=== PATIENT | female | born 1965 | race Hispanic/Latino ===

== ENCOUNTER → 2024-09-08 | Outpatient (REF) | payer OTHER ==
[~2024-09-08] MED LIST: CRESTOR10 MG PO; DEXAMETHASONE4 MG PO; FOLIC ACID0.4 MG PO; IBUPROFEN600 MG PO; LOSARTAN-HCTZ1 EAC2 PO; METHOTREXATE2.5 MG PO; RYBELSUS3 MG PO; VIT D3 PO; XIGDUO XR 10 M1 EAC1 PO
== END ==
LOC: US 09:24
PROVIDERS: ATTEND Nurse Practitioner
DX: R10.10 Upper abdominal pain, unspecified (principal)
CPT/HCPCS: 76700

== ENCOUNTER → 2024-10-07 | Day surgery (SDC) | payer OTHER ==
[~2024-10-07] MED LIST changes: +ALLEGRA-D 24 H1 EACH PO; +AMOX TR-K CLV1 EAC2 PO; +ASPIRIN EC81 MG PO; +DULCOLAX10 MG PR; +EPHEDRINE SULFATE INJ 50 MG/ML VIAL ONE; +ESTROVEN MAX400 MCG PO; +FAMOTIDINE20 MG PO; +FENTANYL CITRATE/PF 100MCG/2 ML INJ ONE; +GLUCAGON FOR INJ 1 MG VIAL ONE; +GLYCOPYRROLATE INJ 0.2 MG/ML VIAL ONE; +HYOSCYAMINE SULFATE 0.5 MG/ML INJ ONE; +KETOROLAC TROME10 MG PO; +LIDOCAINE HCL 2% LOCAL INJ 5 ML SDV VIAL INJ ONE; +LORATADINE10 MG PO; +ONDANSETRON ODT4 MG PO; +OZEMPIC1 MG/0.71 SC; +PANTOPRAZOLE SO40 MG PO; +PROPOFOL IV EMULSION 50 ML IV ONE; +STOOL SOFTENER1 EACH PO
[2024-10-07] MEDS: LACTATED RINGER'S 1,000 ML ONE (11:23)
[2024-10-07 13:41] VITALS: TEMP 98.2
[2024-10-07 14:04] VITALS: BP 111/62; PULSE 72; RESP 18; O2SAT 98
== END | disposition home or self-care (01) ==
LOC: OR 10:34
PROVIDERS: ATTEND Internal Medicine Gastroenterology
DX: K29.50 Unspecified chronic gastritis without bleeding (principal); D12.2 Benign neoplasm of ascending colon; D12.7 Benign neoplasm of rectosigmoid junction; K31.89 Other diseases of stomach and duodenum; K20.90 Esophagitis, unspecified without bleeding; K21.9 Gastro-esophageal reflux disease without esophagitis; K59.00 Constipation, unspecified; K64.8 Other hemorrhoids; I10 Essential (primary) hypertension; E11.9 Type 2 diabetes mellitus without complications; E78.5 Hyperlipidemia, unspecified; Z01.810 Encounter for preprocedural cardiovascular examination; Z79.84 Long term (current) use of oral hypoglycemic drugs; Z79.85 Long-term (current) use of injectable non-insulin antidiabetic drugs; Z79.899 Other long term (current) drug therapy
CPT/HCPCS: 36415; 43239; 45385; 82948; 93005; J1610; J1980; J2003; J2470; J2704; J3010; J7121; 45378

== ENCOUNTER 2024-10-20 00:29 | Emergency (ER) | payer OTHER ==
[~2024-10-20] VITALS: Ht 157.5 cm; Wt 71.7 kg
[~2024-10-20 00:29] MED LIST changes: -ALLEGRA-D 24 H1 EACH PO; -AMOX TR-K CLV1 EAC2 PO; -ASPIRIN EC81 MG PO; -DULCOLAX10 MG PR; -EPHEDRINE SULFATE INJ 50 MG/ML VIAL ONE; -FENTANYL CITRATE/PF 100MCG/2 ML INJ ONE; -GLUCAGON FOR INJ 1 MG VIAL ONE; -GLYCOPYRROLATE INJ 0.2 MG/ML VIAL ONE; -HYOSCYAMINE SULFATE 0.5 MG/ML INJ ONE; -KETOROLAC TROME10 MG PO; -LIDOCAINE HCL 2% LOCAL INJ 5 ML SDV VIAL INJ ONE; -ONDANSETRON ODT4 MG PO; -PANTOPRAZOLE SO40 MG PO; -PROPOFOL IV EMULSION 50 ML IV ONE; -STOOL SOFTENER1 EACH PO
[2024-10-20] MEDS: SODIUM CHLORIDE 0.9% 1000ML 1,000 ML IV STA ×2 (01:05)
[2024-10-20] MEDS: Morphine 4mg INJECTION 4 MG/ML INJ IV STA (01:05)
[2024-10-20] MEDS: ACETAMINOPHEN 325 MG TAB PO STA (01:06)
[2024-10-20] MEDS: ONDANSETRON HCL INJ 2MG/ML 2ML 2 MG/ML VIAL IV STA (01:06)
[2024-10-20 01:16] LABS: BASOPHILS % 0.3 % (0.0-1.0); EOSINOPHILS # (AUTO) 0.1 (0.0-0.4); EOSINOPHILS % 0.5 % (0.0-6.0); HEMATOCRIT 39.4 % (34.2-44.1); HEMOGLOBIN 13.6 g/dL (12.0-16.0); LYMPHOCYTES % 10.5 % (18.0-39.1); MEAN CORPUSCULAR HEMOGLOBIN 31.2 pg (28-32); MEAN CORPUSCULAR HGB CONC 34.5 g/dL (31-35); MEAN CORPUSCULAR VOLUME 90.4 fL (81-99); MONOCYTES # (AUTO) 0.5 (0.2-0.8); MONOCYTES % 4.7 % (4.4-11.3); NEUTROPHILS # (AUTO) 7.9 (2.1-6.9); NEUTROPHILS % 83.6 % (38.7-80.0); PLATELET COUNT 182 x10e3/uL (140-360); RED BLOOD COUNT 4.36 x10e6/uL (3.6-5.1); WHITE BLOOD COUNT 9.48 x10e3/uL (4.8-10.8)
[2024-10-20 01:30] LABS: ALANINE AMINOTRANSFERASE 26 IU/L (0-55); ALBUMIN/GLOBULIN RATIO 1.2 (0.8-2.0); ALKALINE PHOSPHATASE 65 IU/L (40-150); ANION GAP 15.4 mmol/L (8-16); BILIRUBIN,TOTAL 1.1 mg/dL (0.2-1.2); BLOOD UREA NITROGEN 8 mg/dL (7-26); BUN/CREATININE RATIO 11 (6-25); CALCIUM 9.6 mg/dL (8.4-10.2); CARBON DIOXIDE 22 mmol/L (22-29); CHLORIDE 100 mmol/L (98-107); CREATINE KINASE 37 IU/L (29-168); CREATININE, SERUM 0.75 mg/dL (0.57-1.11); EST GLOMERULAR FILTRATION RATE 93 ML/MIN (>=60); GLUCOSE 279 mg/dL (74-118); LIPASE 52 U/L (8-78); POTASSIUM 3.4 mmol/L (3.5-5.1); SODIUM 134 mmol/L (136-145); TOTAL PROTEIN 7.4 g/dL (6.5-8.1)
[2024-10-20 01:31] LABS: CLARITY,URINE CLOUDY (CLEAR); COLOR,URINE YELLOW (YELLOW)
[2024-10-20 01:32] LABS: BILIRUBIN,URINE NEGATIVE (NEGATIVE); GLUCOSE, URINE 500 (NEGATIVE); KETONES,URINE NEGATIVE (NEGATIVE); LEUKOCYTE ESTERASE ,URINE TRACE (NEGATIVE); NITRITE,URINE POSITIVE (NEGATIVE); PH,URINE 5.5 (5 - 7); PROTEIN,URINE DIPSTICK 1+ (NEGATIVE); URINE UROBILINOGEN 0.2 mg/dL (0.2 - 1)
[2024-10-20 01:35] LABS: BACTERIA,URINE MANY /HPF; EPITHELIAL CELLS,URINE MODERATE /LPF; WBC,URINE (MAN) >50 /HPF (0-5)
[2024-10-20 02:02] LABS: TROPONIN I < 0.001 ng/mL (0-0.300)
[2024-10-20 02:15] LABS: CORONAVIRUS COVID-19 AG NEGATIVE (NEGATIVE); INFLUENZA A AG NEGATIVE (NEGATIVE); INFLUENZA B AG NEGATIVE (NEGATIVE)
[2024-10-20] MEDS ORDERED: KETOROLAC TROMETHAMINE 30 MG/ML VIAL ONE (03:16)
[2024-10-20] MEDS: KETOROLAC TROMETHAMINE 30 MG/ML VIAL IV STA (03:24)
[2024-10-20] MEDS ORDERED: AMOX TR-K CLV1 EAC2 PO (03:39)
[2024-10-20] MEDS ORDERED: ONDANSETRON ODT4 MG PO (03:39)
[2024-10-20] MEDS ORDERED: KETOROLAC TROME10 MG PO (03:39)
[2024-10-20 03:49] VITALS: PULSE 85; RESP 19; TEMP 98.4; O2SAT 95
== END 2024-10-20 03:50 | disposition home or self-care (01) ==
LOC: ER 00:33
DX: R50.9 Fever, unspecified (principal); N12 Tubulo-interstitial nephritis, not specified as acute or chronic; R30.0 Dysuria; R10.13 Epigastric pain; Z11.52 Encounter for screening for COVID-19; R94.31 Abnormal electrocardiogram [ECG] [EKG]
CPT/HCPCS: 36415; 74177; 80053; 81001; 82550; 83605; 83690; 84484; 85025; 87040; 87071; 87086; 87186; 87205; 87428; 93005; 99284; J1885; J2270; J2405; J2543; J7030

== ENCOUNTER 2025-01-17 15:00 | Outpatient (RCR) | payer OTHER ==
[~2025-01-17 15:00] MED LIST changes: +ALLEGRA-D 24 H1 EACH PO; +AMOX TR-K CLV1 EAC2 PO; +ASPIRIN EC81 MG PO; +DULCOLAX10 MG PR; +KETOROLAC TROME10 MG PO; +ONDANSETRON ODT4 MG PO; +PANTOPRAZOLE SO40 MG PO; +STOOL SOFTENER1 EACH PO
== END 2025-01-20 ==
LOC: OT 15:00
PROVIDERS: ATTEND Physician Assistant
DX: Z47.89 Encounter for other orthopedic aftercare (principal); S46.091D Other injury of muscle(s) and tendon(s) of the rotator cuff of right shoulder, subsequent encounter

== ENCOUNTER 2025-01-21 22:13 | Inpatient (IN) | payer OTHER ==
[~2025-01-21] VITALS: Ht 157.5 cm; Wt 73.0 kg
[2025-01-21] MEDS ORDERED: PIPERACILLIN/TAZOBACTAM 3.375 GM VIAL ONE (22:32)
[2025-01-21] MEDS: SODIUM CHLORIDE 0.9% 1000ML 1,000 ML IV STA (22:37)
[2025-01-21] MEDS: ACETAMINOPHEN 325 MG TAB PO STA (22:39)
[2025-01-21] MEDS: ONDANSETRON HCL INJ 2MG/ML 2ML 2 MG/ML VIAL IV STA (22:39)
[2025-01-21] MEDS: KETOROLAC TROMETHAMINE 30 MG/ML VIAL IV STA (22:40)
[2025-01-21] MEDS: ONDANSETRON HCL 4 MG ORAL DISINTEGRATING TAB PO STA (22:41)
[2025-01-21 22:42] LABS: BASOPHILS % 0.2 % (0.0-1.0); EOSINOPHILS % 0.2 % (0.0-6.0); LYMPHOCYTES % 13.7 % (18.0-39.1); MONOCYTES % 5.3 % (4.4-11.3); NEUTROPHILS % 80.2 % (38.7-80.0); RED CELL DISTRIBUTION WIDTH 13.3 % (11.7-14.4)
[2025-01-21 23:06] LABS: EST GLOMERULAR FILTRATION RATE 85.0 ML/MIN (>=60)
[2025-01-21 23:28] LABS: LEUKOCYTE ESTERASE ,URINE SMALL (NEGATIVE)
[2025-01-21 23:29] LABS: PROTEIN,URINE DIPSTICK 1+ (NEGATIVE); URINE UROBILINOGEN 1 mg/dL (0.2 - 1)
[2025-01-21 23:32] LABS: EPITHELIAL CELLS,URINE MODERATE /LPF; WBC,URINE (MAN) >50 /HPF (0-5)
[2025-01-21 23:51] VITALS: RESP 17
[2025-01-22] VITALS (10 sets, daily range): BP systolic 90–141; BP diastolic 50–91; PULSE 55–93; RESP 17–20; TEMP 98.3–103.1; O2SAT 95–100
[2025-01-22] MEDS: Morphine 4mg INJECTION 4 MG/ML INJ IV PRN (02:26)
[2025-01-22] MEDS: SODIUM CHLORIDE 0.9% 1000ML 1,000 ML IV SCH (02:27)
[2025-01-22 05:20] LABS: BASOPHILS % 0.4 % (0.0-1.0); EOSINOPHILS % 0.5 % (0.0-6.0); LYMPHOCYTES % 17.4 % (18.0-39.1); MONOCYTES % 7.5 % (4.4-11.3); NEUTROPHILS % 73.9 % (38.7-80.0); RED CELL DISTRIBUTION WIDTH 13.2 % (11.7-14.4)
[2025-01-22 06:16] LABS: EST GLOMERULAR FILTRATION RATE 97.0 ML/MIN (>=60)
[2025-01-22] MEDS: ACETAMINOPHEN 325 MG TAB PO PRN (09:08)
[2025-01-22] MEDS ORDERED: DEXTROSE 50% SYRINGE 50 ML IV PRN (11:15)
[2025-01-22] MEDS: INSULIN LISPRO 100 UNIT/1 ML 3ML VIAL SQ SCH (11:56)
[2025-01-22] MEDS: INSULIN GLARGINE 100 UNITS/ML VIAL SQ ONE (11:56)
[2025-01-22] MEDS: POTASSIUM CHLORIDE 20 MEQ TAB CR PO ONE ×2 (13:43→15:24)
[2025-01-22] MEDS: FAMOTIDINE 20 MG TAB PO SCH (20:37)
[2025-01-23] VITALS (7 sets, daily range): BP systolic 93–128; BP diastolic 53–67; PULSE 67–86; RESP 17–22; TEMP 98.9–102.4; O2SAT 93–100
[2025-01-23 06:13] LABS: BASOPHILS % 0.2 % (0.0-1.0); EOSINOPHILS % 0.2 % (0.0-6.0); LYMPHOCYTES % 15.7 % (18.0-39.1); MONOCYTES % 11.0 % (4.4-11.3); NEUTROPHILS % 72.3 % (38.7-80.0); RED CELL DISTRIBUTION WIDTH 13.4 % (11.7-14.4)
[2025-01-23 06:33] LABS: EST GLOMERULAR FILTRATION RATE 104.0 ML/MIN (>=60)
[2025-01-23] MEDS: PANTOPRAZOLE SOD 40 MG TABEC PO SCH (09:07)
[2025-01-23] MEDS: POTASSIUM CHLORIDE 10MEQ EA PO ONE (09:07)
[2025-01-23] MEDS: FOLIC ACID 1 MG TAB PO SCH (09:08)
[2025-01-23] MEDS: ONDANSETRON HCL INJ 2MG/ML 2ML 2 MG/ML VIAL IV PRN (11:02)
[2025-01-23] MEDS: ENOXAPARIN SOD INJ 40 MG/0.4 ML SYR SC SCH (17:22)
[2025-01-24] VITALS (8 sets, daily range): BP systolic 115–149; BP diastolic 68–86; PULSE 59–84; RESP 17–18; TEMP 97.2–101.1; O2SAT 97–100
[2025-01-24 06:16] LABS: BASOPHILS % 0.3 % (0.0-1.0); EOSINOPHILS % 0.6 % (0.0-6.0); LYMPHOCYTES % 23.9 % (18.0-39.1); MONOCYTES % 10.7 % (4.4-11.3); NEUTROPHILS % 64.0 % (38.7-80.0); RED CELL DISTRIBUTION WIDTH 13.4 % (11.7-14.4)
[2025-01-24 06:41] LABS: EST GLOMERULAR FILTRATION RATE 105.0 ML/MIN (>=60)
[2025-01-24 07:10] LABS: PHOSPHORUS 1.9 MG/DL (2.3-4.7)
[2025-01-24] MEDS: HYDROCODONE/APAP 5MG-325MG TAB PO PRN (15:49)
[2025-01-25 03:29] VITALS: BP 155/81; PULSE 59; RESP 18; TEMP 98.6; O2SAT 100
[2025-01-25 09:00] VITALS: BP 155/81; PULSE 59; RESP 18; TEMP 98.6; O2SAT 100
[2025-01-25 09:56] VITALS: BP 126/72; PULSE 75; RESP 18; TEMP 99; O2SAT 100
[2025-01-25] MEDS ORDERED: CEPHALEXIN500 MG PO (13:18)
[2025-01-25] MEDS ORDERED: SODIUM CHLORIDE 0.9% 100 ML ONE (13:34)
[2025-01-25] MEDS ORDERED: POTASSIUM CHLORIDE 20 MEQ TAB CR PO ONE (13:45)
[2025-01-25 14:39] VITALS: BP 115/75; PULSE 65; RESP 18; TEMP 98.1; O2SAT 100
[2025-01-25] MEDS: POTASSIUM CHLORIDE 20 MEQ TAB CR PO ONE (16:26)
[2025-01-25 16:57] VITALS: BP 151/79; PULSE 58; RESP 18; TEMP 98; O2SAT 100
== END 2025-01-25 17:15 | disposition home or self-care (01) | DRG 872 ==
LOC: ER 22:16 → ERHOLD 23:52 → MED/SURG2 01-22 01:26
PROVIDERS: ADMIT Internal Medicine; ATTEND Internal Medicine
PROC: 3E0333Z Introduction of Anti-inflammatory into Peripheral Vein, Percutaneous Approach (ICD-10-PCS; principal; 2025-01-21)
DX: A41.51 Sepsis due to Escherichia coli [E. coli] (principal); E87.20 Acidosis, unspecified; N39.0 Urinary tract infection, site not specified; N12 Tubulo-interstitial nephritis, not specified as acute or chronic; R65.20 Severe sepsis without septic shock; E87.6 Hypokalemia; E86.0 Dehydration; I10 Essential (primary) hypertension; E11.9 Type 2 diabetes mellitus without complications; E78.5 Hyperlipidemia, unspecified; R53.81 Other malaise; J32.9 Chronic sinusitis, unspecified; Z79.82 Long term (current) use of aspirin; Z79.85 Long-term (current) use of injectable non-insulin antidiabetic drugs
CPT/HCPCS: 36415; 74176; 80048; 80053; 81001; 82550; 82948; 83036; 83605; 83690; 83735; 84100; 84443; 84484; 85025; 87040; 87071; 87086; 87186; 87205; 99284; J0690; J1650; J1815; J1885; J2270; J2405; J2470; J2543; J7030; J7050

== ENCOUNTER 2025-02-16 14:00 | Outpatient (RCR) | payer OTHER ==
[~2025-02-16 14:00] MED LIST changes: +CEPHALEXIN500 MG PO
== END 2025-02-20 ==
LOC: OT 14:00
PROVIDERS: ATTEND Physician Assistant
DX: Z47.89 Encounter for other orthopedic aftercare (principal); S46.091D Other injury of muscle(s) and tendon(s) of the rotator cuff of right shoulder, subsequent encounter

== ENCOUNTER 2025-03-02 14:58 | Outpatient (RCR) | payer OTHER | END 2025-03-22 | LOC: OT 14:58 | PROVIDERS: ATTEND Physician Assistant | DX: M75.101 Unspecified rotator cuff tear or rupture of right shoulder, not specified as traumatic (principal) ==